=== PATIENT | female | born 1995 | race American Indian/Alaskan Native ===

== ENCOUNTER 2021-08-28 12:59 | Emergency (ER) | payer MEDICAID ==
[2021-08-28] MEDS ORDERED: SODIUM CHLORIDE 0.9% 1000 ML 1,000 ML IV ONE (15:46)
[2021-08-28] MEDS ORDERED: ACETAMINOPHEN 325 MG TAB PO ONE (15:46)
--- NOTE | 2021-08-28 15:47 | Emergency Department Report ---
- General Chief Complaint: Upper Respiratory Infection Stated Complaint: 20 WKS PG, C/O BODYACHES Time Seen by Provider: 08/28/21 15:13 Source: patient Mode of arrival: Ambulatory Limitations: No Limitations - History of Present Illness Initial Comments: 25-year-old female who is currently about 22 weeks presents to the ER with complaints of flulike symptoms. Patient states that her symptoms started last night. She reports headache, diffuse body aches including pain in her abdomen, mild cough, and she did have a sore throat last night but she states seems to be better today and she did have a low-grade temperature of 99.6. She reports no chest pain, shortness of breath, or wheezing. Patient came here earlier and was sent to labor and delivery for evaluation of the baby, and she was sent back down to the ER after normal monitoring. Patient denies any vaginal bleeding. She denies any UTI symptoms. She states that she was around her cousins baby who did have strep. She states that she has been taking Tylenol extra strength without much relief of her symptoms. She has not received a Covid vaccine or flu vaccine. She is Ab1. Complaint: fever, cough, sore throat, other (Body aches) -: Last night - Related Data Previous Rx's Medication Instructions Recorded Last Taken Type Acetaminophen [Acetaminophen 8 650 mg PO Q8HR #30 tablet.er 08/28/21 Unknown Rx Hour] Cyclobenzaprine HCl [Flexeril 5 MG 5 mg PO TID PRN #15 tab 08/28/21 Unknown Rx TAB] Allergies Allergy/AdvReac Type Severity Reaction Status Date / Time No Known Allergies Allergy Verified 08/28/21 13:14 ED Review of Systems ROS: Stated complaint: 20 WKS PG, C/O BODYACHES Other details as noted in HPI Comment: All other systems reviewed and negative Constitutional: fever Eyes: denies: eye pain, eye discharge, vision change ENT: throat pain. denies: ear pain Respiratory: cough. denies: shortness of breath, SOB with exertion, SOB at rest, wheezing Cardiovascular: denies: chest pain, palpitations Gastrointestinal: abdominal pain. denies: nausea, vomiting, diarrhea, constipation, hematemesis, melena, hematochezia Genitourinary: denies: urgency, dysuria, discharge, abnormal menses, dyspareunia Musculoskeletal: back pain, myalgia. denies: joint swelling, arthralgia Skin: denies: rash, lesions, change in color, change in hair/nails, pruritus Neurological: headache. denies: weakness, numbness, paresthesias, confusion, abnormal gait, vertigo Psychiatric: denies: anxiety, depression, auditory hallucinations, visual hallucinations, homicidal thoughts, suicidal thoughts Hematological/Lymphatic: denies: easy bleeding, easy bruising, swollen glands ED Past Medical Hx - Medications Home Medications: Home Medications Medication Instructions Recorded Confirmed Last Taken Type Acetaminophen [Acetaminophen 8 650 mg PO Q8HR #30 tablet.er 08/28/21 Unknown Rx Hour] Cyclobenzaprine HCl [Flexeril 5 MG 5 mg PO TID PRN #15 tab 08/28/21 Unknown Rx TAB] ED Physical Exam - General Limitations: No Limitations General appearance: alert, in no apparent distress - Head Head exam: Present: atraumatic, normocephalic, normal inspection - Eye Eye exam: Present: normal appearance, PERRL, EOMI Pupils: Present: normal accommodation - ENT ENT exam: Present: normal exam, TM's normal bilaterally - Expanded ENT Exam Expanded Mouth exam: Present: normal external inspection Throat exam: Positive: tonsillar erythema. Negative: tonsillomegaly, tonsillar exudate, R peritonsillar mass, L peritonsillar mass - Neck Neck exam: Present: normal inspection, full ROM. Absent: meningismus - Respiratory Respiratory exam: Present: normal lung sounds bilaterally. Absent: respiratory distress, wheezes, rales, rhonchi - Cardiovascular Cardiovascular Exam: Present: normal rhythm, tachycardia, normal heart sounds - GI/Abdominal GI/Abdominal exam: Present: soft. Absent: distended, tenderness, guarding, rebound - Neurological Exam Neurological exam: Present: alert, oriented X3, CN II-XII intact, normal gait - Psychiatric Psychiatric exam: Present: normal affect, normal mood - Skin Skin exam: Present: intact ED Course Vital Signs 08/28/21 08/28/21 13:12 17:43 Temperature 99.8 F H 98.3 F Pulse Rate 116 H 102 H Respiratory 20 16 Rate Blood Pressure 113/83 105/64 [Left] O2 Sat by Pulse 99 Oximetry ED Medical Decision Making - Lab Data Result diagrams: 08/28/21 16:01 08/28/21 16:01 - Medical Decision Making She reports feeling much better after IV fluids and Tylenol. Rapid flu and strep negative. Her labs currently are stable does not show any significant abnormalities. She has a nonsurgical abdominal exam. [facility] had normal heart monitoring. Repeat vital signs shows improvement of her heart rate and temp and her blood pressure remained stable she is not hypoxic. Patient is not complaining of any specific chest pain or shortness of breath. She is currently well-appearing, she is not toxic or ill-appearing, she is not in any significant distress, and she is neurologically intact with a normal gait. Discussed all results with patient. Symptoms could be related to a viral illness including Covid and I do recommend that she get a COVID-19 test when she leaves the ER today. In the meantime her treatment will be care to her symptoms and so recommend Tylenol and Robitussin to help with her symptoms and to drink lots of fluids. Patient encouraged to follow-up with her RN HYPERBARIC but she understands if anything worsens to return to the ER. Patient expressed understanding agree with plan. Patient was stable at time of discharge. Critical care attestation.: If time is entered above; I have spent that time in minutes in the direct care of this critically ill patient, excluding procedure time. ED Disposition Clinical Impression: Viral illness, 22 weeks gestation of Disposition: HOME / SELF CARE / HOMELESS Is pt being admited?: No Does the pt Need Aspirin: No Condition: Stable Instructions: Viral Illness, Adult Additional Instructions: Rapid flu and strep were both negative. Your symptoms could still be related to COVID-19 and so I do recommend that you get an outpatient COVID-19 test. You can get this done at any local urgent care or pharmacy. You should quarantine at home until you get the results of your test. Your treatment will be geared towards her symptoms at this time which includes Tylenol for any pain or fever, the flexeril is a muscle relaxer and so take as needed for muscle pain. It can make you sleepy so do not take it while she is driving or operating equipment. You can take plain Robitussin from [id number] to help with any cough and you can take [id number] Zyrtec or Claritin to help with any URI symptoms. Continue to monitor your temperature. Main thing is staying hydrated by drinking lots of fluids. Follow-up closely with your RN HYPERBARIC. Return to the ER if at any point your symptoms worsens in any way. Prescriptions: Acetaminophen [Acetaminophen 8 Hour] 650 mg PO Q8HR #30 tablet.er Cyclobenzaprine HCl [Flexeril 5 MG TAB] 5 mg PO TID PRN #15 tab PRN Reason: body aches Referrals: PRIMARY CARE, [Primary Care Provider] - 3-5 Days Forms: Work/School Release Form(ED) Time of Disposition: 17:36
[2021-08-28 16:15] LABS: Basophils % (Auto) 0.4 % (0.0-1.8); Eosinophils % (Auto) 0.3 % (0.0-4.3); Hematocrit 38.8 % (30.3-42.9); Hemoglobin 12.9 gm/dl (10.1-14.3); Lymphocytes # (Auto) 0.7 K/mm3 (1.2-5.4); Lymphocytes % (Auto) 6.5 % (13.4-35.0); Mean Corpuscular HGB Conc 33 % (30-34); Mean Corpuscular Volume 86 fl (79-97); Monocytes # (Auto) 1.6 K/mm3 (0.0-0.8); Monocytes % (Auto) 14.8 % (0.0-7.3); Platelet Count 292 K/mm3 (140-440); Red Blood Count 4.49 M/mm3 (3.65-5.03); Red Cell Distribution Width 13.9 % (13.2-15.2)
[2021-08-28 16:33] LABS: Alanine Aminotransferase 22 units/L (7-56); Blood Urea Nitrogen 5 mg/dL (7-17); Calcium 9.6 mg/dL (8.4-10.2); Hemolysis Index 16
[2021-08-28 16:42] LABS: Bilirubin,Urine NEG (Negative); Blood,Urine NEG (Negative); Color,Urine Yellow (Yellow); Mucus,Urine 2+ /HPF
[2021-08-28 16:45] LABS: BUN/Creatinine Ratio 10
[2021-08-28 17:44] VITALS: BP 105/64
== END 2021-08-28 17:56 | disposition home or self-care (01) ==
LOC: ED 12:59
DX: O26.892 Other specified pregnancy related conditions, second trimester (principal); B34.9 Viral infection, unspecified; R51.9 Headache, unspecified; M79.18 Myalgia, other site; Z3A.22 22 weeks gestation of pregnancy
CPT/HCPCS: 36415; 80053; 81001; 85025; 87086; 87116; 87400; 87430; 96360; 99283; J7030; Q0162